=== PATIENT | female | born 1955 | race African-American/Black ===

== ENCOUNTER 2018-12-01 12:55 | Inpatient (IN) | payer BC, MEDICARE ==
[~2018-12-01] VITALS: Ht 165.1 cm; Wt 82.1 kg
[2018-12-01 14:17] LABS: HEMATOCRIT. 34.7 % (36.0-48.0); HEMOGLOBIN. 11.5 g/dL (12.0-16.0); MEAN CORPUSCULAR VOLUME 123.5 fL (81.0-99.0); MEAN PLATELET VOLUME 10.4 fl (7.4-10.4); RED BLOOD CELL COUNT 2.81 mill/uL (4.2-5.4); RED CELL DISTRIBUTION WIDTH 15.5 % (11.6-14.6)
[2018-12-01 14:24] LABS: CHLORIDE 89 mEq/L (98-107)
[2018-12-01 14:25] LABS: INR 1.2; PROTHROMBIN TIME 12.5 sec (9.1-11.1)
[2018-12-01 14:33] LABS: NUCLEATED RED BLOOD CELLS 2 /100 WBC
[2018-12-01 14:37] LABS: PLATELET 95 x1000/uL (130-400)
[2018-12-01] MEDS ORDERED: ASPIRIN 81MG TABLET PO NR (15:00)
[2018-12-01] MEDS ORDERED: TRAMADOL 50MG TABLET PO PRN (15:30)
[2018-12-01] MEDS ORDERED: ZOLPIDEM TARTRATE 5MG TABLET PO PRN (15:30)
[2018-12-01] MEDS ORDERED: DOCUSATE SODIUM 100MG CAPSULE PO PRN (15:30)
[2018-12-01] MEDS ORDERED: IPRATROPIUM/ALBUTEROL 0.5-3(2.5)MG/3ML NEB INH PRN (15:30)
[2018-12-01] MEDS ORDERED: ACETAMINOPHEN 325MG TABLET PO PRN (15:30)
[2018-12-01] MEDS ORDERED: GUAIFENESIN/DM 600MG/30MG ER TAB 12HR PO SCH (15:30)
[2018-12-01] MEDS ORDERED: NITROGLYCERIN 0.4MG TABLET SL SL PRN (15:30)
[2018-12-01] MEDS ORDERED: MAGNESIUM/ALUMINUM HYDROXIDE/SIMETHICONE 30ML UDC PO PRN (15:30)
[2018-12-01] MEDS ORDERED: ENOXAPARIN 40MG/0.4ML SYR SUBCUT SCH (15:30)
[2018-12-01] MEDS ORDERED: CLONIDINE 0.1MG TABLET PO PRN (15:30)
[2018-12-01] MEDS ORDERED: NA PHOS,M-B/NA PHOS,DI-BA ENEMA 118ML PR PRN (15:30)
[2018-12-01] MEDS ORDERED: DIPHENHYDRAMINE 50MG/ML VIAL IV PRN (15:30)
[2018-12-01] MEDS ORDERED: GUAIFENESIN 200MG/10ML SUGAR FREE UDC PO PRN (15:30)
[2018-12-01] MEDS ORDERED: ONDANSETRON HCL 4MG/2ML INJ IV PRN (15:30)
[2018-12-01 17:38] LABS: T4 FREE 0.74 ng/dL (0.76-1.46)
[2018-12-01 17:53] LABS: FOLIC ACID (FOLATE) SERUM >20 ng/mL ng/mL (>5.38)
[2018-12-01] MEDS ORDERED: SODIUM CHLORIDE 0.9% 500 ML IV ONE (18:00)
[2018-12-01 18:17] LABS: VITAMIN B12 SERUM > 2000.0 pg/mL (211-911)
[2018-12-01 22:00] VITALS: BP 113/47
[2018-12-01] MEDS: SEVELAMER CARBONATE 800 MG TABLET PO SCH (23:22)
[2018-12-01] MEDS: FAMOTIDINE 20MG TABLET PO SCH (23:22)
[2018-12-02] VITALS (60 sets, daily range): BP systolic 42–175; BP diastolic 18–137
[2018-12-02 00:22] LABS: CREATINE KINASE MB FRACTION 9.9 ng/mL (0.5-3.6)
[2018-12-02] MEDS: LACTULOSE 20G/30ML UDC PO SCH ×2 (00:41→07:54)
[2018-12-02 06:14] LABS: BASOPHILS % 0.2 % (0.0-2.0); EOSINOPHILS % 0.1 % (0.0-5.0); HEMATOCRIT. 30.8 % (36.0-48.0); HEMOGLOBIN. 10.3 g/dL (12.0-16.0); LYMPHOCYTES % 10.1 % (20.0-50.0); MEAN CORPUSCULAR VOLUME 122.9 fL (81.0-99.0); MEAN PLATELET VOLUME 8.6 fl (7.4-10.4); MONOCYTES % 5.3 % (2.0-8.0); NEUTROPHILS % 84.3 % (40.0-76.0); PLATELET 121 x1000/uL (130-400); RED BLOOD CELL COUNT 2.51 mill/uL (4.2-5.4); RED CELL DISTRIBUTION WIDTH 15.7 % (11.6-14.6)
[2018-12-02 06:23] LABS: CHLORIDE 96 mEq/L (98-107)
[2018-12-02 06:33] LABS: CREATINE KINASE 254 IU/L (26-192)
[2018-12-02 06:40] LABS: CREATINE KINASE MB FRACTION 8.7 ng/mL (0.5-3.6)
[2018-12-02] MEDS ORDERED: LEVOTHYROXINE SODIUM 50MCG TABLET PO SCH (07:30)
[2018-12-02 07:39] LABS: PHOSPHORUS 8.3 mg/dL (2.5-4.9)
[2018-12-02] MEDS: SEVELAMER CARBONATE 800 MG TABLET PO SCH ×3 (07:54→17:00)
[2018-12-02] MEDS ORDERED: ASPIRIN 325MG EC TABLET PO SCH (09:00)
[2018-12-02] MEDS ORDERED: FOLIC ACID/VITAMIN B COMP W-C TABLET PO SCH (09:00)
[2018-12-02] MEDS: FAMOTIDINE 20MG TABLET PO SCH (09:00)
[2018-12-02] MEDS ORDERED: ENOXAPARIN 30MG/0.3ML SYR SUBCUT SCH (09:00)
[2018-12-02 10:03] LABS: BG BASE EXCESS -10.1 mmol/L (-2.0-2.0); BG CARBOXYHEMOGLOBIN 3.8 % (0.5-1.5); BG DEOXYHEMOGLOBIN 21.9 % (0.0-5.0); BG FRACTION INSPIRED OXYGEN 32; BG HCO3 ACT 20.3 mmol/L (22.0-26.0); BG OXYGEN SATURATION 77.2 % (92.0-98.5); BG OXYHEMOGLOBIN 74.3 % (94.0-97.0); BG PCO2 68.3 mmHg (35.0-45.0); BG PH 7.092 (7.350-7.450); BG PO2 46.7 mmHg (75.0-100.0); BG SAMPLE SITE RIGHT RADIAL; BG TOTAL HEMOGLOBIN 12.2 g/dL (12.0-18.0); BG VENT MODE NASAL CANNULA
[2018-12-02] MEDS ORDERED: SODIUM BICARBONATE 8.4% 1 MEQ/ML 50ML SYR IV NR (10:15)
[2018-12-02] MEDS ORDERED: SODIUM CHLORIDE 0.9% 500 ML IV ONE (10:15)
[2018-12-02] MEDS: MIDODRINE HCL 5MG TABLET PO SCH ×3 (10:29→17:00)
[2018-12-02 10:37] LABS: PLATELET ESTIMATE SLIGHTLY DECREASED
[2018-12-02] MEDS ORDERED: PROPOFOL 10MG/ML 100ML 100 ML IV PRN (11:30)
[2018-12-02 12:17] LABS: BG BASE EXCESS -7.8 mmol/L (-2.0-2.0); BG CARBOXYHEMOGLOBIN 2.3 % (0.5-1.5); BG DEOXYHEMOGLOBIN 0.5 % (0.0-5.0); BG FRACTION INSPIRED OXYGEN 100; BG OXYGEN SATURATION 99.5 % (92.0-98.5); BG OXYHEMOGLOBIN 97.2 % (94.0-97.0); BG PCO2 32.4 mmHg (35.0-45.0); BG PH 7.339 (7.350-7.450); BG PO2 193.1 mmHg (75.0-100.0); BG SAMPLE SITE RIGHT BRACHIAL; BG TIDAL VOLUME(mL) 500 mL; BG TOTAL HEMOGLOBIN 11.3 g/dL (12.0-18.0); BG VENT MODE VENT - A/C; BG VENT RATE 14 set
[2018-12-02] MEDS: IPRATROPIUM/ALBUTEROL 0.5-3(2.5)MG/3ML NEB HHN SCH ×4 (12:40→23:46)
[2018-12-02] MEDS ORDERED: PANTOPRAZOLE SODIUM 40 MG/VIAL IV NR (13:15)
[2018-12-02] MEDS: NOREPINEPHRINE 8 MG in DEXT 5% WATER 242 ML IV PRN ×3 (13:20→22:31)
[2018-12-02] MEDS: METRONIDAZOLE 500 MG PREMIX 100 ML IV SCH ×2 (14:07→21:11)
[2018-12-02] MEDS ORDERED: SODIUM CHLORIDE 10% FOR INH 15ML VIAL NEB INH SCH (14:30)
[2018-12-02] MEDS ORDERED: PHENYLEPHRINE 40 MG in DEXT 5% WATER 500 ML IV PRN (14:58)
[2018-12-02] MEDS ORDERED: CEFEPIME 1,000 MG in DEXTROSE 5% WATER 50 ML IV SCH (15:00)
[2018-12-02] MEDS: PHENYLEPHRINE 40 MG in DEXT 5% WATER 500 ML IV PRN ×2 (16:33→23:41)
[2018-12-02] MEDS ORDERED: LACTULOSE 20G/30ML UDC PO SCH (17:00)
[2018-12-02] MEDS ORDERED: PETROLATUM,WHITE OPHTH OINT 3.5GM BOTHEYE SCH (21:00)
[2018-12-02] MEDS: VASOPRESSIN 10 UNIT in SODIUM CHLORIDE 0.9% 99.5 ML IV PRN ×2 (21:05→23:43)
[2018-12-02] MEDS ORDERED: EPINEPHRINE 1 MG in SODIUM CHLORIDE 0.9% 249 ML IV PRN (21:30)
[2018-12-02 22:15] LABS: BG BASE EXCESS -13.6 mmol/L (-2.0-2.0); BG CARBOXYHEMOGLOBIN 0.8 % (0.5-1.5); BG FRACTION INSPIRED OXYGEN 100; BG HCO3 ACT 13.2 mmol/L (22.0-26.0); BG METHEMOGLOBIN 0.2 % (0.0-1.5); BG OXYGEN SATURATION 89.9 % (92.0-98.5); BG PCO2 33.9 mmHg (35.0-45.0); BG PH 7.208 (7.350-7.450); BG PO2 62.3 mmHg (75.0-100.0); BG SAMPLE SITE LEFT FEMORAL; BG TIDAL VOLUME(mL) 500 mL; BG TOTAL HEMOGLOBIN 10.7 g/dL (12.0-18.0); BG VENT MODE VENT - A/C; BG VENT RATE 14 set
[2018-12-02] MEDS ORDERED: SODIUM BICARBONATE 8.4% 1 MEQ/ML 50ML SYR IV SCH (23:45)
[2018-12-02] MEDS: EPINEPHRINE 2 MG in SODIUM CHLORIDE 0.9% 248 ML IV PRN (23:46)
[2018-12-03] VITALS (16 sets, daily range): BP systolic 62–172; BP diastolic 33–106
[2018-12-03] MEDS: NOREPINEPHRINE 8 MG in DEXT 5% WATER 242 ML IV PRN (02:50)
[2018-12-03] MEDS: PHENYLEPHRINE 40 MG in DEXT 5% WATER 500 ML IV PRN (03:53)
[2018-12-03] MEDS: VASOPRESSIN 10 UNIT in SODIUM CHLORIDE 0.9% 99.5 ML IV PRN (03:54)
[2018-12-03] MEDS: EPINEPHRINE 2 MG in SODIUM CHLORIDE 0.9% 248 ML IV PRN (03:57)
[2018-12-03] MEDS: IPRATROPIUM/ALBUTEROL 0.5-3(2.5)MG/3ML NEB HHN SCH (04:23)
[2018-12-03 05:01] LABS: HEMATOCRIT. 31.3 % (36.0-48.0); HEMOGLOBIN. 9.3 g/dL (12.0-16.0); MEAN CORPUSCULAR HEMOGLOBIN 39.6 pg (28.0-32.0); MEAN CORPUSCULAR VOLUME 134.3 fL (81.0-99.0); MEAN PLATELET VOLUME 8.8 fl (7.4-10.4); PLATELET 100 x1000/uL (130-400); RED BLOOD CELL COUNT 2.33 mill/uL (4.2-5.4); RED CELL DISTRIBUTION WIDTH 17.1 % (11.6-14.6)
[2018-12-03 05:04] LABS: CHLORIDE 104 mEq/L (98-107)
[2018-12-03 05:08] LABS: PHOSPHORUS 4.4 mg/dL (2.5-4.9)
[2018-12-03] MEDS ORDERED: VANCOMYCIN 1500MG in DEXTROSE 5% WATER 250ML IV NR (08:30)
[2018-12-03] MEDS ORDERED: PANTOPRAZOLE SODIUM 40 MG/VIAL IV SCH (09:00)
[2018-12-03] MEDS ORDERED: ALBUMIN HUMAN 25GM/100ML (25%) IV SCH (10:00)
[2018-12-03] MEDS ORDERED: VECURONIUM BROMIDE 10 MG/VIAL IV ONE (13:54)
[2018-12-03] MEDS ORDERED: ETOMIDATE 2MG/ML 10ML VIAL IV ONE (13:54)
[2018-12-03] MEDS ORDERED: EPINEPHRINE 0.1MG/ML (1:10,000) 10ML SYR ONE (14:24)
[2018-12-03] MEDS ORDERED: SODIUM BICARBONATE 7.5% 0.9 MEQ/ML 50ML SYR IV ONE (14:24)
[2018-12-03] MEDS ORDERED: CALCIUM CHLORIDE 1GM/10ML SYR IV ONE (14:24)
[2018-12-04 13:28] LABS: NUCLEATED RED BLOOD CELLS 76 /100 WBC
[2018-12-04 13:29] LABS: PLATELET ESTIMATE DECREASED
== END 2018-12-03 06:47 | disposition expired | DRG 871 ==
LOC: ER 12:55 → SUPCPDRO 15:12 → EDBEDREQTM 15:47 → EDBEDREQ 15:47 → 5EST 17:53 → EDBEDREQ 17:55 → EDBEDREQSVC 17:55 → EDBEDREQTM 17:55 → ENRESERV 20:21 → MICUSO 12-02 11:10
PROVIDERS: ADMIT Internal Medicine; ATTEND Internal Medicine
PROC: 0BH17EZ Insertion of Endotracheal Airway into Trachea, Via Natural or Artificial Opening (ICD-10-PCS; principal; 2018-12-02)
PROC: 5A1935Z Respiratory Ventilation, Less than 24 Consecutive Hours (ICD-10-PCS; 2018-12-02)
PROC: 5A09357 Assistance with Respiratory Ventilation, Less than 24 Consecutive Hours, Continuous Positive Airway Pressure (ICD-10-PCS; 2018-12-02)
PROC: 5A1D70Z Performance of Urinary Filtration, Intermittent, Less than 6 Hours Per Day (ICD-10-PCS; 2018-12-02)
PROC: 5A12012 Performance of Cardiac Output, Single, Manual (ICD-10-PCS; 2018-12-03)
DX: A41.9 Sepsis, unspecified organism (principal); N18.6 End stage renal disease; J18.9 Pneumonia, unspecified organism; J96.01 Acute respiratory failure with hypoxia; J96.02 Acute respiratory failure with hypercapnia; R65.21 Severe sepsis with septic shock; E87.1 Hypo-osmolality and hyponatremia; E44.1 Mild protein-calorie malnutrition; I13.2 Hypertensive heart and chronic kidney disease with heart failure and with stage 5 chronic kidney disease, or end stage renal disease; I50.32 Chronic diastolic (congestive) heart failure; J44.0 Chronic obstructive pulmonary disease with (acute) lower respiratory infection; J44.1 Chronic obstructive pulmonary disease with (acute) exacerbation; G93.40 Encephalopathy, unspecified; G93.49 Other encephalopathy; I46.9 Cardiac arrest, cause unspecified; E87.70 Fluid overload, unspecified; D63.8 Anemia in other chronic diseases classified elsewhere; E03.9 Hypothyroidism, unspecified; I95.3 Hypotension of hemodialysis; E11.22 Type 2 diabetes mellitus with diabetic chronic kidney disease; E78.5 Hyperlipidemia, unspecified; E83.39 Other disorders of phosphorus metabolism; Z86.73 Personal history of transient ischemic attack (TIA), and cerebral infarction without residual deficits; Z99.2 Dependence on renal dialysis; Z87.442 Personal history of urinary calculi; Z87.891 Personal history of nicotine dependence; Z88.8 Allergy status to other drugs, medicaments and biological substances; Z68.30 Body mass index [BMI] 30.0-30.9, adult; Z72.89 Other problems related to lifestyle
CPT/HCPCS: 36415; 36600; 70551; 71045; 80048; 80061; 82140; 82375; 82550; 82553; 82607; 82746; 82805; 82962; 83036; 83540; 83550; 83605; 83735; 83880; 84100; 84134; 84439; 84443; 84478; 84484; 93005; 93306; 93970; 94002; 94640; 94660; 96374; 99285; C9113; J0692; J1650; J2370; J3370; J3490; J7030; J7040; J7050; J7060; J7131; J7620; A4315